=== PATIENT | male | born 1955 | race Caucasian/White ===

== ENCOUNTER → 2024-04-13 15:37 | Outpatient (REF) | payer MEDICARE, OTHER, SELFPAY ==
--- NOTE | 2024-03-13 10:20 | PN.DIAED02 ---
Addendum entered by Marily Hernandez RN 03/13/24 10:36:
Reviewed proper testing technique for checking his blood sugars.
Original Note:
Referral
DSME Class Series Code: [id number]
Referred For: Diabetes Self-Management Training
PHI Release Authorization Form Signed: Yes
Demographic
(1) Type 2 diabetes mellitus
Status: Acute Code(s): E11.9 - Type 2 diabetes mellitus without complications
Patient's primary language-: Greek
Occupation: Retired
- Social
Primary Support Person: Self & spouse
Primary Care Takers: Self
Living Arrangements: Self & spouse
- Learning Methods
Preferred Method: Lecture/audio
Barriers to Learning: None
Glycemic Control
- Blood Glucose Monitoring Assessment
Date: 03/13/24
Blood glucose monitoring at home: Yes
Monitor Brands: [employer] ([employer])
Frequency: 2x per day
Time: fasting, after breakfast, after lunch, after dinner
- Hemoglobin A1c
Date: 03/06/24
A1C Percentage (%): 7.5 (11/2023 A1C of 8.5%)
Medical History of Diabetes
Previous Diabetes Education: Yes
How long ago?: 6-10 years ago (fred)
Complications/Comorbidity/Specialist: Hypertension, Other / symptoms (sciatica)
Measures
- Anthropometrics
Height: 5 ft 10 in
Actual Weight: 235 lb 2 oz (252# 07/2023)
- Blood Pressure / Pulse
Blood pressure: 152/87
Pulse: 47 (suggest he check his pulse and call provider if remains <60bpm)
- Diabetes Management
Medical Management for Diabetes: Complete physical exam (11/23/23), Dental exam (03/10/2024), Dilated eye exam (04/2024), Flu Vaccination (fall 2022), Pneumonia vaccination (unknown but states he received)
Self-Care
- Tobacco Usage
Do you now, or have you ever smoked?: Quit more than 1 year ago (at least 15 years ago)
- Alcohol & Drugs Usage
Drinks Alcohol: Yes
Amount/day: Other (1-2 beers/week)
- Meals & Dining
Meals & Dining: Patient skips meals: Yes (he does not eat breakfast, discussed)
Primary Food Cub Reporter: Self
Primary Medication Technician: Self
Dining Out Frequency: 1-3x per week (1)
- Physical Activity
Physical Limitation: Yes (back pain)
Patient participates in physical Activity: Yes
Activity Types: Stretching
Duration: 10-20 minutes (20)
Frequency: 6-7x per week (6)
Intensity: Easy
Notes:
has exercises from attending PT
- Patient-Self Assessment
Diabetes Knowledge: Poor
Feelings About Diabetes: Acceptance
General Health: Good
Importance of Health: Extremely
Stress Level: Low
Diabetes Interferes With:: Nothing
Depression Survey Score: 0
Care Plan
- Education Needs
Patient Education Needs: Diabetes disease process, Chronic complications, Acute complications, Medication, Monitoring, Physical activity, Psychosocial Adjustment, Nutritional management, Goal setting & problem solving
Recommended Diabetes Training Program based on assessment: Outpatient Diabetes Education Program
- Plan of Care
Plan of Care:
History of T2DM for 10years. A1C 11/2023 of 8.5%, he was prescribed a medication (name unknow) but it was denied by insurance. He did not follow up with his provider until recently when his A1C (03/05/2024) came down to 7.5%. His PCP recommend no
medicaton at this time. He has lost 17# since 07/2023. He does not eat breakfast and will have cheerios w/banana for lunch and a salad w/protein for dinner. When asked, he will have cookies or ice cream bar after dinner and fruit/pretzels throughout
the day. Suggest eating breakfast and adding a protein to his cereal and banana, also suggest half of a banana as he states he uses the large ones. Also recommend adding protein to his snacks, handout on snack options provided. Goals established,
he will attempt to add some light walking, will assess if back pain increases. he has been lax in monitoring BS although he did check this morning, result 140 mg/dl. Testing pattern given with rationale for why he is testing as well as expected
results discussed. Handout with this information provided. Directions to classroom given.
--- NOTE | 2024-03-13 10:34 | PN.DIAED04 ---
Education Record
- Education Record
Class Attended: Class 1 (pre registration 03/13/24 for outpt DSME classes starting 04/13/24)
DSME Class Series Code: [id number]
Instructor: Registered Nurse (Marily Hernandez, RN, BSN, [facility])
Class Curriculum:
Outpatient Diabetes Education Program:
Initial Assessment (45 minutes)
Individualized assessment
Develop personal strategies to promote health and behavior change
Development of diabetes self-management support plan
Class Length (mins): 60
Pre-Program Knowledge: No knowledge
Pre-Test Score (%): 3
Goals
- Goal 1
Being Active: Exercise 30 minutes-5 times per week (Continue with stretching 20 minutes daily and attempt to add light walking.)
Goals To Be Evaluated: Exercise 30 mins-5x/week
- Goal 2
Healthy Eating: Make better food choices (Add protein to meals and snacks.)
Goals To Be Evaluated: Make better food choices
- Goal 3
Monitoring: Take blood sugar in the prescribed pattern (Handout provided. )
Goals To Be Evaluated: Test BG-prescribed times
--- NOTE | 2024-04-14 14:07 | PN.DIAED14 ---
This is to notify you that your patient with diabetes, DEV DOUGHERTY ( 1955), has enrolled in our diabetes self-management classes that are being held at [facility].
These classes will include an introduction to diabetes, diet, medication, exercise and prevention of complications. At the end of our class series, you will receive a report of your patient's participation and progress for your records.
Please contact me at the Diabetes Center, , if there is any particular information regarding your patient that might be helpful to me.
Sincerely,
HALEY Bailey-, [facility]
Director
Diabetes & Nutrition Services
== END ==
LOC: DES 15:37
PROVIDERS: ATTENDING PHYSICIAN Family Medicine
DX: E11.9 Type 2 diabetes mellitus without complications (principal)
CPT/HCPCS: 99078

== ENCOUNTER → 2024-04-20 12:00 | Outpatient (REF) | payer MEDICARE, OTHER, SELFPAY ==
--- NOTE | 2024-04-21 10:33 | PN.DIAED04 ---
Education Record
- Education Record
Class Attended: Class 2
DSME Class Series Code: [id number]
Instructor: Registered Dietitian (Nila Renner, RD, LDN, CDE)
Class Length (mins): 120
== END ==
LOC: DES 12:00
PROVIDERS: ATTENDING PHYSICIAN Family Medicine
DX: E11.9 Type 2 diabetes mellitus without complications (principal)
CPT/HCPCS: 99078